=== PATIENT | female | born 1995 | race Caucasian/White ===

== ENCOUNTER → 2021-08-23 14:55 | Outpatient (BNVA) | payer OTHER, SELFPAY | PROVIDERS: Family Provider Family Medicine; PCP Family Medicine; Visit Provider Obstetrics & Gynecology | DX: Z12.4 Encounter for screening for malignant neoplasm of cervix (principal) | CPT/HCPCS: 88175 ==

== ENCOUNTER 2021-11-12 00:42 | Emergency (ER) | payer OTHER, SELFPAY ==
[2021-11-12 00:48] VITALS: BP 149/85; PULSE 128; RESP 16; TEMP 36.6; O2SAT 99; BMI 39.1
--- NOTE | 2021-11-12 01:13 | W.ED.NAVMDI ---
HPI - Nausea/Vomiting/Diarrhea General: Chief complaint: Nausea/Vomiting/Diarrhea Stated complaint: N/V shaking Time Seen by Provider: 11/12/21 00:53 History of Present Illness: HPI Narrative: Patient is a 26-year-old female comes to the ED with nausea and vomiting. Patient says that her symptoms of nausea started approximately 2 weeks ago when she was taken off her previously prescribed venlafaxine. She said the nausea was mild since stopping venlafaxine but over the past 2 days her nausea is gotten worse. Today she had approximately 4-5 episodes of emesis and feels very anxious and is diaphoretic. She denies any fevers, chills, chest pain, shortness of breath, abdominal pain or bladder symptoms. Patient says that as she arrived here to the ED tonight she did have an episode of diarrhea. Patient also states that mom and boyfriend also had some nausea and vomiting over the past couple days as well so is unsure if it might be a stomach bug. Patient is currently on control. Patient does admit to being a daily marijuana user. Denies any other illegal drug use. Associated nausea: Yes Associated symtoms: Reports anxiety, diaphoresis and nausea; Denies change in vision, chest pain, dysuria, fatigue, headache(s) or palpitations Review of Systems Const: Reports: diaphoresis; Denies: fever(s), chills or fatigue Eyes: Denies: change in vision or eye discomfort ENMT: Denies: throat pain, odynophagia, nasal discharge or nasal congestion Card: Denies: chest pain, palpitations, edema, swelling of feet/ankles, dyspnea on exertion or orthopnea Resp: Denies: dyspnea, productive cough or non-productive cough GI: Reports: nausea, vomiting and diarrhea (1 episode of diarrhea upon arrival to ED.); Denies: abdominal pain, constipation or hematochezia : Denies: flank pain, dysuria or hematuria Musc: Denies: neck pain, back pain or extremity swelling Skin/Breast: Denies: rash or new lesions Neuro: Denies: headache(s), numbness in extremities or weakness in extremities Psych: Reports: anxiety PFS ED PFSH: Medical History Anxiety and depression Diagnosed at the age of 18 and has been on and off medication. This is managed by her primary care provider. No pertinent past medical history Denies diabetes, asthma, hypertension, seizures, DVT/PE PCP: Dr. Mims Surgical History S/P tonsillectomy 2002 Family History Family/Other Breast cancer maternal aunt, diagnosed at age 32 Mother Diabetes Thyroid condition Hypertension Grandmother Diabetes paternal Heart disease paternal Grandfather Diabetes maternal Father Hypertension Denies family history of Colon cancer Ovarian cancer Hyperlipidemia Uterine cancer Stroke Physical Exam Const: COMMON NORMALS: patient oriented x3 and alert GENERAL APPEARANCE: cooperative and diaphoretic NUTRITIONAL APPEARANCE: obese HENMT: COMMON NORMALS: normocephalic HEAD & SCALP: normocephalic MOUTH: Normal oral and palatal mucosa present THROAT: posterior oropharynx normal and uvula midline Eye: COMMON NORMALS: Equal, round and reactive pupils present PUPIL: Yes Equal, round and reactive pupils present Neck/C-Spine: COMMON NORMALS: supple GENERAL: Yes normal visual inspection Resp: COMMON NORMALS: normal respiratory effort, No retractions, No use of accessory muscles and clear to auscultation bilaterally AUSCULTATION: clear to auscultation bilaterally Cardio: COMMON NORMALS: regular rate, regular rhythm, S1 normal heart sound present, S2 normal heart sound present, No gallops present (Cardio), No clicks present (Cardio), No murmurs present (Cardio) and Peripheral pulses 2+ throughout RATE: regular rate RHYTHM: regular rhythm HEART SOUNDS: S1 normal heart sound present and S2 normal heart sound present PERIPHERAL PULSES: Peripheral pulses 2+ throughout GI: COMMON NORMALS: Normal to inspection, nondistended, normoactive bowel sounds present, Soft to palpation, non-tender and no masses PALPATION: Yes Soft to palpation : COMMON NORMALS: Yes no CVA tenderness BLADDER/KIDNEY EXAM: Yes no CVA tenderness Back/Pelvis: COMMON NORMALS: no CVA tenderness Extremity: COMMON NORMALS: normal to inspection Neuro: COMMON NORMALS: patient oriented x3 and moves all extremities SENSORIUM/ORIENTATION: Yes alert Skin: GENERAL SKIN EXAM: dry skin Course Reevaluation(s): Reevaluation #1: After patient received the IV Reglan she said her nausea has resolved and she is feeling better. Patient says she is ready to go home and sleep. Time: 03:28 Vital Signs: Vital signs: Vital Signs Temperature 97.8 F 11/12/21 00:48 Pulse Rate 87 11/12/21 02:54 Respiratory Rate 18 11/12/21 02:54 Blood Pressure 156/86 11/12/21 02:54 Pulse Oximetry 98 11/12/21 02:54 MDM - Nausea/Vomiting/Diarrhea MDM Narrative: Medical decision making narrative: Patient is a 26-year-old female who comes to the ED with episode of nausea and vomiting. Patient says she has had similar episodes before. Patient does admit to being a chronic daily marijuana user. Her nausea and vomiting worsened over the past 2 days. Here in the ED she says she is also feeling some anxiety and is diaphoretic. Denies any fever, chills, chest pain, shortness of breath, abdominal pain, or bladder symptoms. Patient says she had an episode of diarrhea while here in the ED. Vitals stable. Her initial pulse was 128 upon arrival to the ED but after nausea was controlled and IV fluids given her pulse went down to 87. Rest of her vitals continue to be stable. Patient appears diaphoretic and a little anxious while sitting on the exam bed. Rest of exam is benign. CBC and CMP were unremarkable. Patient's potassium level was 3.3 she was given a dose of p.o. potassium while here in the ED. Patient was given 1 L of IV fluids, Zofran, Ativan and Reglan to help with symptoms. Her symptoms were controlled and patient said her nausea had resolved. Patient was diagnosed with nausea and vomiting and discharged home with a prescription for Reglan as needed for any nausea and vomiting. She was told to follow-up with her PCP in 7 to 10 days for reevaluation. Return to ED precautions given. Patient understood and agreed with plan. Lab Data: Attestation: I reviewed the patient's lab results. Labs: Lab Results 11/12/21 11/12/21 11/12/21 01:13 01:13 01:13 WBC 10.7 10^3/uL H 10 ^3/uL (4.0-10.0) RBC 4.63 10^6/uL 10^6 /uL (4.1-5.3) Hgb 13.7 g/dL g/dL (11.5-15.3) Hct 38.1 % % (37.0-47.0) MCV 82.3 fl fl (81-99) MCH 29.6 pg pg (28.0-34.0) MCHC 36.0 g/dL g/dL (30.0-36.0) RDW 12.4 % % (12.1-15.1) Plt Count 421 10^3/cmm H 10 ^3/cmm (130-400) MPV 9.1 fL fL (7.4-10.4) Neut % (Auto) 50.0 % % Lymph % (Auto) 39.6 % % Archule[place] % (Auto) 7.7 % % Eos % (Auto) 2.1 % % Baso % (Auto) 0.2 % % Neut # (Auto) 5.37 10^3/uL 10^3 /uL (1.8-7.7) Lymph # (Auto) 4.2 10^3/uL 10^3/ uL (0.8-4.8) [place] # (Auto) 0.8 10^3/uL 10^3/ uL (0.2-0.9) Eos # (Auto) 0.2 10^3/uL 10^3/ uL (0.0-0.8) Baso # (Auto) 0.0 10^3/uL 10^3/ uL (0.0-0.1) Nucleated RBC % (a uto) 0 % % Nucleated RBCs # 0.0 /100WBC /100W BC Sodium 136 mmol/L mmol/L (136-145) Potassium 3.3 mmol/L L mmol /L (3.5-5.1) Chloride 103 mmol/L mmol/L (98-107) Carbon Dioxide 19 mmol/L L mmol/ L (22-29) Anion Gap 17.3 (5-19) BUN 8 mg/dL mg/dL (6-20) Creatinine 0.9 mg/dL mg/dL (0.5-0.9) GFR Calculation 76.9 mL/min L mL/ min (90-130) Glucose 123 mg/dL H mg/dL (65-115) Calculated Osmolal ity 282 mOsm/kg L mOs m/kg (285-295) Calcium 9.1 mg/dL mg/dL (8.5-10.5) Total Bilirubin 0.2 mg/dL mg/dL (0.15-1.2) AST 19 U/L U/L (0-32) ALT 24 U/L U/L (0-33) Alkaline Phosphata se 61 IU/L IU/L (35-105) Total Protein 7.1 g/dL g/dL (6.6-8.7) Albumin 4.2 g/dL g/dL (3.5-5.2) Globulin 2.9 g/dL g/dL (1.3-4.6) Lipase 27 U/L U/L (13-60) HCG, Qual Negative (Negative) Urine Color Urine Appearance Urine pH Ur Specific Gravit y Urine Protein Urine Glucose (UA) Urine Ketones Urine Blood Urine Nitrate Urine Bilirubin Urine Urobilinogen Ur Leukocyte Kelli ase 11/12/21 02:08 WBC RBC Hgb Hct MCV MCH MCHC RDW Plt Count MPV Neut % (Auto) Lymph % (Auto) [place] % (Auto) Eos % (Auto) Baso % (Auto) Neut # (Auto) Lymph # (Auto) [place] # (Auto) Eos # (Auto) Baso # (Auto) Nucleated RBC % (a uto) Nucleated RBCs # Sodium Potassium Chloride Carbon Dioxide Anion Gap BUN Creatinine GFR Calculation Glucose Calculated Osmolal ity Calcium Total Bilirubin AST ALT Alkaline Phosphata se Total Protein Albumin Globulin Lipase HCG, Qual Urine Color Yellow (Yellow) Urine Appearance Clear (CLEAR) Urine pH 7 (5-7) Ur Specific Gravit y 1.010 (1.005-1.030) Urine Protein Neg (Negative) Urine Glucose (UA) Norm (Normal) Urine Ketones Negative (Negative) Urine Blood Neg (Negative) Urine Nitrate Negative (Negative) Urine Bilirubin Neg (Negative) Urine Urobilinogen Norm mg/dL mg/dL (Negative) Ur Leukocyte Kelli ase Negative (Negative) Discharge Plan Discharge Patient Disposition: Home Clinical Impression: Nausea & vomiting Qualifiers: Vomiting type: unspecified Qualified Code(s): R11.2 - Nausea with vomiting, unspecified Condition: Stable Prescriptions: New metoclopramide HCl 10 mg tablet 10 mg PO Q6H PRN (Reason: nausea and vomiting) Qty: 12 RF: 0 No Action venlafaxine 25 mg tablet 25 mg PO BID RF: 0 norethindrone-e.estradiol-iron [11/09 (28)] 1 mg-20 mcg (21)/75 mg (7) tablet 1 tab PO DAILY Qty: 84 RF: 3 Discharge Orders: Discharge ED (Routine); Ordered 11/12/21 Ordered By: Nikunj Simms Referrals: Duane Corrigan MD [Primary Care Provider] - Discharge Diet: Advance as tolerated Discharge Activity: Increase activity as tolerated Patient Instructions: Acute Nausea and Vomiting (ED) Activity Restrictions/Additional Instructions: Follow-up with medical provider as directed in 7 to 10 days for reevaluation. Make sure you drink plenty of fluids and stay hydrated. Take medications as prescribed. Return to the ER or your medical provider if condition worsens. Please read and understand discharge instructions. Thank you for choosing [facility] for your healthcare needs today. Please realize this is an emergency room and that we are providing you with a medical screening exam and this may not be complete and all inclusive of all the testing and or work up that you may need to determine your ailment or severity of your illness. It is very important that you follow up as instructed or that you return to the Emergency Department should you have concerns or if your condition changes or worsens in any way. Coding Level of Care Code ED Belt Builder Helper for Faheem Fwd Exam Comprehensive
[2021-11-12 01:27] LABS: Basophils % 0.2 %; Eosinophils # 0.2 10^3/uL (0.0-0.8); Eosinophils % 2.1 %; Hematocrit 38.1 % (37.0-47.0); Hemoglobin 13.7 g/dL (11.5-15.3); Lymphocytes # 4.2 10^3/uL (0.8-4.8); Lymphocytes % 39.6 %; Mean Corpuscular Hemoglobin 29.6 pg (28.0-34.0); Mean Corpuscular Volume 82.3 fl (81-99); Mean Platelet Volume 9.1 fL (7.4-10.4); Monocytes # 0.8 10^3/uL (0.2-0.9); Monocytes % 7.7 %; Neutrophils # 5.37 10^3/uL (1.8-7.7); Nucleated Red Blood Cells % 0 %; Platelet Count 421 10^3/cmm (130-400); Red Blood Count 4.63 10^6/uL (4.1-5.3); Red Cell Distribution Width 12.4 % (12.1-15.1); White Blood Count 10.7 10^3/uL (4.0-10.0)
[2021-11-12] MEDS: sodium chloride 0.9% 1,000 ML 999 ML IV (01:48)
[2021-11-12] MEDS: ondansetron 2 mg/ML SDV 2 mL 4 MG IVP (01:48)
[2021-11-12 01:51] LABS: Alanine Aminotransferase 24 U/L (0-33); Albumin Level 4.2 g/dL (3.5-5.2); Alkaline Phosphatase 61 IU/L (35-105); Anion Gap 17.3 (5-19); Aspartate Amino Transferase 19 U/L (0-32); Blood Urea Nitrogen 8 mg/dL (6-20); Calcium 9.1 mg/dL (8.5-10.5); Carbon Dioxide 19 mmol/L (22-29); Chloride 103 mmol/L (98-107); Globulin 2.9 g/dL (1.3-4.6); Glomerular Filtration Rate 76.9 mL/min (90-130); Glucose 123 mg/dL (65-115); Lipase 27 U/L (13-60); Osmolality Calculated 282 mOsm/kg (285-295); Potassium 3.3 mmol/L (3.5-5.1); Sodium 136 mmol/L (136-145); Total Bilirubin 0.2 mg/dL (0.15-1.2); Total Protein 7.1 g/dL (6.6-8.7)
[2021-11-12 01:57] LABS: HCG, Serum Qual Negative (Negative)
[2021-11-12 02:00] LABS: Slide Review Slide Review Perform
[2021-11-12] MEDS: LORazepam 2 mg/mL INJ 1 mL 1 MG IVP (02:21)
[2021-11-12 02:25] LABS: Add Urine Microscopic? NO; Charge for UA Resulting for Rev
[2021-11-12 02:27] LABS: Bilirubin Urine Neg (Negative); Blood Urine Neg (Negative); Glucose Urine UA Norm (Normal); Ketones Urine Negative (Negative); Leukocyte Esterase Urine Negative (Negative); Nitrate Urine Negative (Negative); Protein Urine Neg (Negative); Urine Appearance Clear (CLEAR); Urine Color Yellow (Yellow); Urobilinogen Urine Norm (Negative); pH Urine 7 (5-7)
[2021-11-12 02:54] VITALS: BP 156/86; PULSE 87; RESP 18; O2SAT 98
[2021-11-12] MEDS: metoclopramide 5 mg/mL SDV 2 mL 10 MG IVP (03:15)
[2021-11-12] MEDS: potassium chloride ER 20 mEq Tablet PO (03:41)
== END 2021-11-12 03:42 | disposition home or self-care (01) ==
PROVIDERS: Emergency Provider Physician Assistant; PCP Family Medicine
DX: R11.2 Nausea with vomiting, unspecified (principal)
CPT/HCPCS: 80053; 81003; 83690; 84703; 85025; 96361; 96374; 96375; 99284; J2060; J2405; J2765; J7030

== ENCOUNTER → 2022-01-10 11:12 | Outpatient (BNVA) | payer OTHER, SELFPAY | PROVIDERS: PCP Family Medicine; Visit Provider Obstetrics & Gynecology | DX: N93.9 Abnormal uterine and vaginal bleeding, unspecified (principal) | CPT/HCPCS: 84146; 84443; 84702; 85025 ==

== ENCOUNTER → 2022-09-21 06:58 | Outpatient (BNVA) | payer OTHER, SELFPAY | PROVIDERS: PCP Family Medicine; Visit Provider Family Medicine | DX: Z34.90 Encounter for supervision of normal pregnancy, unspecified, unspecified trimester (principal); Z34.00 Encounter for supervision of normal first pregnancy, unspecified trimester; I10 Essential (primary) hypertension | CPT/HCPCS: 80307; 81000; 81025; 84144; 84156; 84443; 84702; 85025; 86592; 86762; 86803; 86850; 86900; 87086; 87340; 87491; 87591; 87624; 87661; 87806 ==

== ENCOUNTER 2022-10-05 15:52 | Outpatient (CLI) | payer OTHER, MEDICAID, SELFPAY ==
--- NOTE | 2022-10-05 16:00 | USR_ITS ---
PROCEDURE INFORMATION: Exam: US First Trimester, Transabdominal and US , Transvaginal Exam date and time: 10/05/2022 4:05 PM Age: 27 years old Clinical indication: Screening exam; Routine US, uterus; Additional info: Dating US LABS AND CLINICAL REPORTS: Last menstrual period start date: 07/29/2022 Gestational age (Established): 9 w 5 d Estimated due date (Established): 05/05/2023 TECHNIQUE: Imaging protocol: Real-time transabdominal obstetrical ultrasound of the maternal pelvis and a first trimester , less than 14 weeks 0 days, with image documentation. Transvaginal imaging was used for better evaluation of the fetus, adnexa, and/or cervix. COMPARISON: CT abdomen pelvis w con* [id number] 02/04/2018 4:03 AM FINDINGS: Gestation: Intrauterine gestation is visualized. pole is visualized. Yolk sac is visualized. Yolk sac measures 4.8 mm. Embryonic/ heart rate: 167 bpm Extra-embryonic membranes/Placenta: Unremarkable. No subchorionic bleed. Amniotic fluid: Amniotic fluid and extra-amniotic fluid is normal for gestational age. BIOMETRY: Gestational age (AUA): 9 w 5 d [place]-Rump length (CRL): 28.7 mm. EGA (CRL) is 9 w 5 d MATERNAL: Uterus: Unremarkable. Cervix: Unremarkable. Right ovary/adnexa: Unremarkable ovary. Left ovary/adnexa: Unremarkable ovary. Intraperitoneal space: No intraperitoneal free fluid. US/US OB <= 14 weeks fetus [id number] IMPRESSION: Single live intrauterine fetus with ultrasonographic age of 9 weeks 5 days.
== END 2022-10-05 15:53 | disposition home or self-care (01) ==
LOC: RAD 15:52
PROVIDERS: PCP Family Medicine; Visit Provider Family Medicine
DX: Z34.00 Encounter for supervision of normal first pregnancy, unspecified trimester (principal)
CPT/HCPCS: 76801; 84144; 84156; 84702

== ENCOUNTER 2022-12-27 07:56 | Outpatient (CLI) | payer OTHER, BC, MEDICAID, SELFPAY ==
--- NOTE | 2022-12-27 08:00 | US_ITS ---
WS: [id number] OBSTETRICAL ULTRASOUND COMPLETE HISTORY: Anatomy scan. COMPARISON: 10/05/2022 Single intrauterine gestation in breech presentation. Cervix is Closed and normal length. Cervical length is 5.1 cm. Normal amount of amniotic fluid surrounds the fetus. Placenta: Anterior, no previa or abruption. Placenta grade 1 Heart: 141 BPM. 4 chambers cannot be determined. Outflow tracts are limited. Anatomy: Intracranial structures and spine are normal. Spine is posterior during the examinatio n. kidneys, stomach and urinary bladder are unremarkable. Abdominal wall, three-vessel cord and cord insertion site are normal. 4 extremities are present. profile: Unremarkable. Gender: Male. measurements: BPD = 5.1 cm = 21w3d; HC = 19.4 cm = 21w4d; AC = 16.5 cm = 21w4d; FL = 3.7 cm = 21w5d; EFW: 440 g. Not available. Biometry is internally concordant. AGA by ultrasound: 21w4d BRITTNEE by ultrasound: 05/05/2023 US/US OB >= 14 weeks fetus [id number] IMPRESSION: 1. Single intrauterine gestation of 21w4d with an BRITTNEE of 05/05/2023. 2. Anatomic screening survey is limited by maternal body habitus. This is a ve ry limited evaluation of the heart. Recommend follow-up imaging in 2-3 we eks. The remaining anatomy although limited is unremarkable. 3. Normal amniotic fluid.
== END 2022-12-27 07:57 | disposition home or self-care (01) ==
PROVIDERS: PCP Family Medicine; Visit Provider Family Medicine
DX: Z34.00 Encounter for supervision of normal first pregnancy, unspecified trimester (principal); Z3A.21 21 weeks gestation of pregnancy
CPT/HCPCS: 76805

== ENCOUNTER → 2023-01-14 13:28 | Outpatient (BNVA) | payer BC, MEDICAID, SELFPAY | PROVIDERS: PCP Family Medicine; Visit Provider Obstetrics & Gynecology | DX: R87.619 Unspecified abnormal cytological findings in specimens from cervix uteri (principal); Z34.00 Encounter for supervision of normal first pregnancy, unspecified trimester | CPT/HCPCS: 81025 ==

== ENCOUNTER 2023-01-23 08:01 | Outpatient (CLI) | payer BC, MEDICAID, SELFPAY ==
--- NOTE | 2023-01-23 08:15 | US_ITS ---
WS: [id number] ULTRASOUND OB FOCUSED HISTORY: Follow-up outflow tracts. COMPARISON: 12/27/2022 Single intrauterine gestation in cephalic position. Cervix is closed. Normal amount of amniotic fluid . Anterior placenta, grade 1. heart rate at 153 BPM. Four-chamber heart. Normal situs. Normal axis. Outflow tracts better visualized today. Normal LEFT ve ntricular outflow tract. RIGHT ventricular outflow tract is more difficult to visualize but no abnorm ality is identified. US/US OB >= 14 weeks fetus [id number] IMPRESSION: Reevaluation of the cardiac outflow tracts demonstrates no abnormality.
== END 2023-01-23 08:02 | disposition home or self-care (01) ==
PROVIDERS: PCP Family Medicine; Visit Provider Family Medicine
DX: Z36.89 Encounter for other specified antenatal screening (principal); Z3A.14 14 weeks gestation of pregnancy
CPT/HCPCS: 76805

== ENCOUNTER → 2023-02-01 08:21 | Outpatient (BNVA) | payer BC, MEDICAID, SELFPAY | PROVIDERS: PCP Family Medicine; Visit Provider Family Medicine | DX: Z34.00 Encounter for supervision of normal first pregnancy, unspecified trimester (principal); Z3A.00 Weeks of gestation of pregnancy not specified | CPT/HCPCS: 82950 ==

== ENCOUNTER → 2023-02-14 10:03 | Outpatient (BNVA) | payer OTHER, BC, SELFPAY | PROVIDERS: PCP Family Medicine; Visit Provider Family Medicine | DX: Z34.00 Encounter for supervision of normal first pregnancy, unspecified trimester (principal); R73.09 Other abnormal glucose | CPT/HCPCS: 82951; 82952 ==

== ENCOUNTER → 2023-03-20 08:42 | Outpatient (BNVA) | payer OTHER, BC, SELFPAY | PROVIDERS: PCP Family Medicine; Visit Provider Family Medicine | DX: Z34.00 Encounter for supervision of normal first pregnancy, unspecified trimester (principal) | CPT/HCPCS: 85025 ==

== ENCOUNTER → 2023-04-08 08:53 | Outpatient (BNVA) | payer OTHER, BC, SELFPAY | PROVIDERS: PCP Family Medicine; Visit Provider Family Medicine | DX: I10 Essential (primary) hypertension (principal); Z34.00 Encounter for supervision of normal first pregnancy, unspecified trimester; Z34.90 Encounter for supervision of normal pregnancy, unspecified, unspecified trimester; R30.0 Dysuria | CPT/HCPCS: 82570; 84156; 87081; 87086 ==

== ENCOUNTER → 2023-04-24 12:58 | Outpatient (BNVA) | payer BC, MEDICAID, SELFPAY | PROVIDERS: PCP Family Medicine; Visit Provider Family Medicine | DX: I10 Essential (primary) hypertension (principal); R03.0 Elevated blood-pressure reading, without diagnosis of hypertension; Z34.00 Encounter for supervision of normal first pregnancy, unspecified trimester; Z51.81 Encounter for therapeutic drug level monitoring; Z3A.00 Weeks of gestation of pregnancy not specified | CPT/HCPCS: 80053; 82570; 84156; 84550; 85025 ==

== ENCOUNTER 2023-04-26 12:40 | Outpatient (CLI) | payer BC, MEDICAID, SELFPAY ==
[2023-04-26 12:40] VITALS: BMI 42.1
[2023-04-26 12:52] VITALS: BP 140/90; PULSE 107
[2023-04-26 13:07] VITALS: BP 133/76; PULSE 90
[2023-04-26 13:22] VITALS: BP 138/77; PULSE 76
[2023-04-26 13:37] VITALS: BP 141/85; PULSE 82
[2023-04-26 14:15] VITALS: BP 141/85; PULSE 82; RESP 15; TEMP 36.4
== END 2023-04-26 14:15 | disposition home or self-care (01) ==
LOC: OPOB 12:45 → OBGYN 12:46
PROVIDERS: PCP Family Medicine; Visit Provider Family Medicine
DX: O16.9 Unspecified maternal hypertension, unspecified trimester (principal); Z3A.00 Weeks of gestation of pregnancy not specified
CPT/HCPCS: 59025; 99211

== ENCOUNTER 2023-04-27 13:48 | Outpatient (CLI) | payer BC, MEDICAID, SELFPAY ==
[2023-04-27 15:09] LABS: Urine Total Protein 7.5 mg/dL (0-150)
[2023-04-27 15:29] LABS: Total Volume, Urine 1900 mL; Urine Total Protein 24 Hour 142.5 mg/24hr (0-150)
== END 2023-04-27 13:49 | disposition home or self-care (01) ==
PROVIDERS: PCP Family Medicine; Visit Provider Family Medicine
DX: O13.9 Gestational [pregnancy-induced] hypertension without significant proteinuria, unspecified trimester (principal); Z3A.00 Weeks of gestation of pregnancy not specified
CPT/HCPCS: 84156

== ENCOUNTER 2023-04-29 18:12 | Inpatient (IN) | payer BC, MEDICAID, SELFPAY ==
[2023-04-29 18:37] VITALS: BP 134/85; PULSE 102
[2023-04-29 19:46] VITALS: BMI 42.4
[2023-04-29 20:29] LABS: Amphetamines Screen Urine Negative (Negative); Barbiturates Screen Urine Negative (Negative); Benzodiazepines Screen Urine Negative (Negative); Cocaine Screen Urine Negative (Negative); Opiate Screen Urine Negative (Negative); PCP Screen Urine Negative (Negative); THC Screen Urine Positive (Negative)
[2023-04-29 20:42] VITALS: BP 142/88; PULSE 80
--- NOTE | 2023-04-29 21:16 | PM.HP ---
Providers/Chief Complaint Admitting Physician: Nikunj Mims MD Primary Care Provider: Nikunj Mims MD Chief Complaint: induction History of Present Illness Mi Gaviria is a 28 year old @ 39.1 weeks by LMP c/w 9 wk US. Preg c/b obesity, borderline cHTN, Depression/anxiety on Sertraline 50, nicotine/THC use in early TM, h/o chlamydia, LSIL, mild anemia. The patient presents for induction of labor secondary to chronic hypertension. Her blood pressures have been in the 130s to 140s over 80s and 90s. She has not needed medications for this yet. Overall she is feeling well. She denies any chest pains, shortness of breath, nausea, vomiting, headaches, flashes of light, diarrhea, constipation, dysuria, leakage of fluid, vaginal bleeding. She has had a few sporadic contractions. Medications/Allergies Home Medications Medication Instructions Recorded Confirmed Last Taken Type doxylamine succinate 25 mg tablet 25 mg PO Q6H PRN Nausea 09/21/22 04/29/23 Unknown History prenat.vits,jessica,[id number] 1 tab PO DAILY 09/21/22 04/29/23 Unknown History pyridoxine (vitamin B6) 100 mg 100 mg PO QID 09/21/22 04/29/23 Unknown History tablet (Vitamin B-6) sertraline 50 mg tablet See Rx Instructions .Route 03/28/23 04/29/23 Unknown Rx .COMPLEX #30 tabs Allergies Allergy/AdvReac Type Severity Reaction Status Date / Time No Known Allergies Allergy Verified 01/14/23 12:57 PFSH Acute PFSH: Medical History Anxiety and depression Diagnosed at the age of 18 and has been on and off medication. This is managed by her primary care provider. No pertinent past medical history Denies diabetes, asthma, hypertension, seizures, DVT/PE PCP: Dr. Mims Psychiatric care Surgical History S/P tonsillectomy 2002 Family History Family/Other Breast cancer maternal aunt, diagnosed at age 32 Mother Diabetes Thyroid condition Hypertension Grandmother Diabetes paternal Heart disease paternal Grandfather Diabetes maternal Father Hypertension Denies family history of Colon cancer Ovarian cancer Hyperlipidemia Uterine cancer Stroke Social History Substance/Drug Use: former Date of last use: 08/2022 - [facility] Female Reproductive History: : 1 Vitals/I&O/Wt Last Vital Signs Pulse 80 04/29/23 20:42 BP 142/88 04/29/23 20:42 O2 Del Method Room Air 04/29/23 19:38 Weight last 48 hrs Weight 271 lb Physical Exam Narrative: General: Alert and oriented x3 Eyes: Pupils equal round and reactive to light and accommodation Mouth: Mucous membranes moist, pharynx non-erythematous Cardiac: Regular rate and rhythm without murmurs Lungs: Clear to auscultation bilaterally without wheezes, crackles or rhonchi Abdomen: Soft, non-tender, fundus consistent with gestational age Extremities: Trace edema in the bilateral lower extremities A&P Assessment and plan (1) Supervision of normal intrauterine in primigravida: The patient presents for induction of labor. We will start her on Cytotec. We will give up to 3 doses if needed. The patient may receive a laboring epidural when she gets to 3 cm dilated. We will proceed with the antihypertensive protocol if needed. The patient is GBS negative. We discussed the possible risks and benefits of induction at this time. The patient and her significant other are in agreement with current plan of care. All questions were answered. (2) Hypertension: Attestations Medical Necessity Statement*: The patient will be here for greater than 2 midnights due to routine intrapartum and management of labor and delivery. Coding Level of Care Code Acute Code for Chg Fwd Diagnoses Supervision of normal intrauterine in primigravida Z34.00 Hypertension I10
[2023-04-29] MEDS: miSOPROStol 100 mcg tablet 25 MCG VAGINAL (22:30)
[2023-04-29 22:42] VITALS: TEMP 36.5
[2023-04-29 22:59] LABS: Basophils % 0.2 %; Eosinophils # 0.1 10^3/uL (0.0-0.8); Eosinophils % 0.7 %; Hematocrit 32.8 % (37.0-47.0); Hemoglobin 10.5 g/dL (11.5-15.3); Lymphocytes # 2.7 10^3/uL (0.8-4.8); Lymphocytes % 24.9 %; Mean Corpuscular Hemoglobin 26.6 pg (28.0-34.0); Mean Corpuscular Volume 83.2 fl (81-99); Mean Platelet Volume 11.1 fL (7.4-10.4); Monocytes # 0.7 10^3/uL (0.2-0.9); Monocytes % 6.8 %; Neutrophils # 7.17 10^3/uL (1.8-7.7); Neutrophils % 66.6 %; Nucleated Red Blood Cells % 0 %; Platelet Count 369 10^3/cmm (130-400); Red Blood Count 3.94 10^6/uL (4.1-5.3); Red Cell Distribution Width 14.3 % (12.1-15.1); White Blood Count 10.8 10^3/uL (4.0-10.0)
[2023-04-29 23:03] VITALS: BP 133/73; PULSE 79
[2023-04-30] VITALS (78 sets, daily range): BP systolic 102–188; BP diastolic 52–97; PULSE 54–81; RESP 15–17; TEMP 35.7–36.6; O2SAT 98–100
[2023-04-30] MEDS: hyDROXYzine 25 mg Capsule 50 MG PO ×3 (02:11→23:55)
[2023-04-30] MEDS: ondansetron 2 mg/ML SDV 2 mL 4 MG IVP ×3 (02:12→21:22)
[2023-04-30] MEDS: miSOPROStol 100 mcg tablet 25 MCG VAGINAL ×2 (02:51→07:32)
--- NOTE | 2023-04-30 08:14 | PM.PN ---
Subjective Subjective: Mi Gaviria is a 28 year old @ 39.2 weeks by LMP c/w 9 wk US. Preg c/b obesity, cHTN, Depression/anxiety on Sertraline 50, nicotine/THC use in early 1st TM, h/o chlamydia, LSIL, mild anemia. The patient is doing well at this time. She has had some mild nausea, however no further chest pains, headache or seeing flashes of light. She had 2 doses of Cytotec placed overnight. She had her third dose placed at 7:30 AM. At that time she was still closed, thick and high. Vitals/I&O/Wt Last Vital Signs Temp 96.6 F L 04/30/23 06:48 Pulse 68 04/30/23 08:10 BP 131/76 04/30/23 08:10 O2 Del Method Room Air 04/29/23 19:38 Weight last 48 hrs Weight 271 lb Physical Exam Narrative: General: Alert and oriented x3 Cardiac: Regular rate and rhythm without murmurs Lungs: Clear to auscultation bilaterally without wheezes, crackles or rhonchi Abdomen: Soft, non-tender, fundus consistent with gestational age Extremities: Trace edema in the bilateral lower extremities Data 04/29/23 18:40 A&P Assessment and plan (1) Supervision of normal intrauterine in primigravida: The patient is doing well overall, however has not responded to the first 2 doses of Cytotec. She is phuong every 5 minutes but they are not firm at this point. We will see how she does after her third dose of Cytotec and follow. Blood pressures have been stable so far. We will continue with intrapartum management of labor and delivery. All questions were answered. The patient is in agreement with the current plan of care. (2) Hypertension: (3) Anemia affecting first : Attestations Medical Necessity Statement*: The patient will be here for greater than 2 midnights due to routine intrapartum and management of labor and delivery. Coding Level of Care Code Acute Code for Chg Fwd Diagnoses Supervision of normal intrauterine in primigravida Z34.00 Hypertension I10 Anemia affecting first O99.019
[2023-04-30] MEDS: dextrose 5%-lactated ringers 1,000 ML 125 ML IV ×2 (13:30→17:42)
[2023-04-30] MEDS: fentaNYL 50 mcg/mL INJ 2mL IVP ×2 (15:35→17:48)
[2023-04-30] MEDS: lactated ringers 1,000 ML 999 ML IV ×3 (16:18→21:29)
[2023-04-30] MEDS: acetaminophen 325 mg Tablet 650 MG PO (17:47)
--- NOTE | 2023-04-30 20:20 | P.ANESASSM_ITS ---
Pre-Anesthetic Assessment Height/Weight: Height 1.7 m Weight 122.924 kg Temp Pulse Resp BP O2 Del Method 97.9 F 67 17 138/75 Room Air 04/30/23 13:03 04/30/23 20:09 04/30/23 17:48 04/30/23 20:09 04/29/23 19:38 Preop Diagnosis: labor pain epidural Was Beta Rodrigo taken within 24 hours: N/A Was Clonidine taken within 24 hours: N/A Social No alcohol marijuana daily not in last 24 hours Exam alert, oriented x 3, clear to auscultation bilaterally and regular rate & rhythm Airway Submandibular: within normal limits Cervical ROM: within normal limits Mallampati: Class II Dentition: full Comments: Comments: poor Pulmonary None reported CV/HEM murmur as child but has gone away None reported Hepatic None reported GI Gastroesophageal Reflux Disease Metabolic Morbid Obesity [facility] None reported Neuropsych Anxiety, Depression and Headache Anesthetic Plan ASA status: 3 Anesthesia: Regional (specify below) Risk of > 500 ml blood loss (7ml/kg in children): No Medications/Allergies Home Medications Medication Instructions Recorded Confirmed Last Taken Type doxylamine succinate 25 mg tablet 25 mg PO Q6H PRN Nausea 09/21/22 04/29/23 Unknown History prenat.vits,jessica,[id number] 1 tab PO DAILY 09/21/22 04/29/23 Unknown History pyridoxine (vitamin B6) 100 mg 100 mg PO QID 09/21/22 04/29/23 Unknown History tablet (Vitamin B-6) sertraline 50 mg tablet See Rx Instructions .Route 03/28/23 04/29/23 Unknown Rx .COMPLEX #30 tabs Allergies Allergy/AdvReac Type Severity Reaction Status Date / Time No Known Allergies Allergy Verified 01/14/23 12:57 Current Medications Generic Name Dose Route Start Last Admin Trade Name Freq PRN Reason Stop Dose Admin Acetaminophen 650 mg 04/29/23 20:05 04/30/23 17:47 Acetaminophen 325 Mg Tablet PO 650 mg Q6H PRN Administration Mild pain or temp > 100.4 Fentanyl 25 - 100 mcg 04/29/23 21:58 04/30/23 17:48 Fentanyl 50 Mcg/Ml Inj 2ml IVP 50 mcg Q1H PRN Administration SEVERE PAIN Hydroxyzine Pamoate 50 mg 04/29/23 20:05 04/30/23 17:48 Hydroxyzine 25 Mg Capsule PO 50 mg QID PRN Administration sleep, agitation or itching Lactated Ringer's 1,000 mls @ 999 mls/hr 04/29/23 20:05 04/30/23 17:20 Lactated Ringers IV Infused .Q1H1M PRN Infusion Per L&D Rescitation Protocol Dextrose/Lactated Ringer's 1,000 mls @ 125 mls/hr 04/29/23 21:59 04/30/23 17:42 Dextrose 5%-Lactated Ringers IV 125 mls/hr .Q8H PRN Administration IOL Oxytocin 30 unit in 500 mls @ 1 mls/hr 04/30/23 12:00 04/30/23 13:46 Pitocin IV Not Given .Q24H MATILDA Protocol 1 MILLIUNIT/MIN Oxytocin 30 unit/ Sodium 503 mls @ 1 mls/hr 04/30/23 12:15 04/30/23 18:30 Chloride IV 2 mls/hr .Q24H MATILDA 2 mls/hr Titration Protocol Lactated Ringer's 1,000 mls @ 999 mls/hr 04/30/23 19:06 04/30/23 19:18 Lactated Ringers IV 999 mls/hr .Q1H1M PRN Administration See label comments Ondansetron HCl 4 mg 04/29/23 20:05 04/30/23 06:41 Ondansetron 2 Mg/Ml Sdv 2 Ml IVP 4 mg Q4H PRN Administration NAUSEA AND VOMITING PFSH Anesthesia Medical History Anxiety and depression Diagnosed at the age of 18 and has been on and off medication. This is managed by her primary care provider. No pertinent past medical history Denies diabetes, asthma, hypertension, seizures, DVT/PE PCP: Dr. Mims Psychiatric care Surgical History S/P tonsillectomy 2002 Family History Family/Other Breast cancer maternal aunt, diagnosed at age 32 Mother Diabetes Thyroid condition Hypertension Grandmother Diabetes paternal Heart disease paternal Grandfather Diabetes maternal Father Hypertension Denies family history of Colon cancer Ovarian cancer Hyperlipidemia Uterine cancer Stroke Social History Substance/Drug Use: former Date of last use: 08/2022 - [facility] Female Reproductive History : 1 Data Anesthesia 04/29/23 18:40 Short CBC 04/29/23 Range/Units 18:40 WBC 10.8 H (4.0-10.0) 10^3/uL Hgb 10.5 L (11.5-15.3) g/dL Hct 32.8 L (37.0-47.0) % MCV 83.2 (81-99) fl Plt Count 369 (130-400) 10^3/cmm Neut % (Auto) 66.6 % Neut # (Auto) 7.17 (1.8-7.7) 10^3/uL Cardiac Studies: No Data to Display
--- NOTE | 2023-04-30 20:58 | P.ANES_ITS ---
Anesthesia Procedures Procedure/Date: 04/30/23 epidural Procedure Narrative: epidural complete, bolus given, epidural pump initiated with SUPPLY CHAIN PLANNER education given, vitals taken during procedure and satisfactory throughout, patient admits to decrease pain, report of procedure to OB RN Epidural: Time Out Performed: Yes Consents Signed: Procedure Consent Consent: requested by attending/covering physician, from patient, risks and benefits reviewed and patient agrees to proceed Lumbar Level: L3-L4 Epidural position: sitting Epidural procedure: sterile prep of area, 1% lidocaine to numb the area (3 mL), 18 g needle, negative for paresthesia passed, neg for paresthesia, test dose given, 1.5% xylocaine 1:200k epi (5 mL), 0.2% Ropivacaine bolus ml (5 mL), placed PCEA, no systemic response, sterile dressing applied, L.U.D. no apparent complications and 0.2% Ropiavacaine @ mls/hr (13 mL/hr)
[2023-05-01] VITALS (91 sets, daily range): BP systolic 99–173; BP diastolic 50–109; PULSE 54–129; RESP 16–18; TEMP 36.6–37.3
[2023-05-01] MEDS: ondansetron 2 mg/ML SDV 2 mL 4 MG IVP ×3 (04:19→16:45)
[2023-05-01] MEDS: dextrose 5%-lactated ringers 1,000 ML 125 ML IV ×4 (05:08→20:44)
[2023-05-01] MEDS: hyDROXYzine 25 mg Capsule 50 MG PO ×2 (06:32→13:05)
[2023-05-01] MEDS: metoclopramide 5 mg/mL SDV 2 mL 10 MG IV (13:05)
--- NOTE | 2023-05-01 21:25 | ANES.PROC ---
Anesthesia Procedures Procedure/Date: 05/01/23 Procedure Narrative: Called to evaluate epidural, pt states she is feeling 10/10 pain with contractions and epidural has been working well until her water was broken. She states the pain is mostly in her back but she feels some increased pain in her abdomen with contractions. 100mcg of fentanyl via epidural and 3ml 0.25% bupivicaine via epidural. Pt's pain reassessed 15 minutes later and she states she is more comfortable and feeling less pain with contractions. Pt re-educated on epidural and epidural PROSECUTING ATTORNEY.
[2023-05-01] MEDS: metoclopramide 5 mg/mL SDV 2 mL 10 MG IVP (22:33)
[2023-05-01] MEDS: citric acid-sodium citrate 30 mL UDC PO (22:33)
[2023-05-01] MEDS: lactated ringers 1,000 ML 999 ML IV (22:33)
[2023-05-01] MEDS: famotidine 20 mg/2 mL INJ IVP (22:33)
[2023-05-01] MEDS: ceFAZolin 2,000 MG in sodium chloride 0.9% (plus) 50 ML 100 MG IV (22:38)
--- NOTE | 2023-05-01 22:40 | PM.MISC ---
Miscellaneous Note Note: The patient has been laboring throughout the day and her water is broken earlier this afternoon. She was 4 cm at that time. She progressed to 7 cm at approximately 6:15 PM. Since then she has had regular contractions, however is still only 7.5 cm despite multiple position changes. heart tones are currently in the mid 150s with moderate variability good accelerations with occasional early decelerations. Since we are not making significant change, there is concern for cephalopelvic disproportion and we will proceed with a primary low-transverse section due to arrest of dilation. The patient is in agreement with the current plan of care. All questions were answered.
[2023-05-02] VITALS (44 sets, daily range): BP systolic 113–173; BP diastolic 66–110; PULSE 64–100; RESP 15–16; TEMP 35.8–37
[2023-05-02] MEDS: clindamycin 900 MG/50 ML PREMIX 100 MG IV ×3 (00:15→16:16)
--- NOTE | 2023-05-02 00:59 | PM.OP ---
Operative Report Date of procedure: May 02, 2023 Pre-op diagnosis: 1. Intrauterine at 39.3 weeks gestation 2. Obesity 3. Chronic hypertension 4. Depression and anxiety on sertraline 5. THC positive 6. Mild anemia Post-op diagnosis: 1. Intrauterine status post primary low-transverse section at 39.3 weeks gestation 2. Obesity 3. Chronic hypertension 4. Depression and anxiety on sertraline 5. THC positive 6. Mild anemia 7. Delivery of healthy male weighing 7 pounds 15 ounces with Apgars of 8 and 9 Post-op findings: 1. Healthy male weighing 7 pounds 15 ounces with Apgars of 8 and 9 2. Intact placenta with central umbilical cord insertion site Procedure done: Primary low-transverse section Specimens removed/disposition: Placenta removed Surgeon: Nikunj Mims MD Estimated blood loss (mL): 650 Complications: None Brief History: Mi Gaviria is a 28 year old G1 now P1 status post primary low transverse section @ 39.3 weeks by LMP c/w 9 wk US. Preg c/b obesity, borderline cHTN, Depression/anxiety on Sertraline 50, nicotine/THC use in early , h/o chlamydia, LSIL, mild anemia. The patient presented for induction of labor due to chronic hypertension at 39.1 weeks gestation on the evening of 04/29/2023. The patient was given 3 doses of Cytotec and changed to 1 cm dilation. She was then started on IV Pitocin and began to make change, however this was slow in nature. Unfortunately the infant's head was balottable so AROM could not be performed initially. By the morning of 05/01/2023, the patient began to make cervical change and by early afternoon at approximately 2:30 PM on 05/01/2023, AROM was performed with clear fluid noted. The patient began to make change and was 7 cm dilated by 6:15 PM. She did not make any significant change however by 10 PM despite adequate contractions. For this reason it was felt best to proceed with a primary low-transverse section due to arrest of dilation concerning for cephalopelvic disproportion. Procedure: After informed consent was obtained, the patient was taken to the operating room and the patient was prepped and draped in a normal sterile fashion in the dorsal supine position.? Her epidural was dosed for anesthesia, however did not provide adequate anesthesia. For this reason general sedation was given. At 2326 on 05/01/2023 a Pfannenstiel skin incision was made and carried through to the underlying layer of fascia using a scalpel.? The fascial incision was then extended laterally using curved Mayos.? The fascia was then grasped with Lance clamps and the underlying rectus muscles were dissected off taking care to avoid injury to the underlying tissues.? The peritoneum was entered bluntly with one digit.? It was then bluntly.? The bladder blade was placed and the vesicouterine peritoneum was well below the lower uterine segment of the uterus.? The uterine incision was made in the lower uterine segment in a transverse fashion with the scalpel at 8.? The amniotic membrane was entered bluntly and a moderate amount of meconium stained fluid was noted.? Uterine pressure was placed and the infant's head delivered without complication at 2328 on 05/01/2023.? There was no nuchal cord.? The mouth and nose were suctioned.? The rest of the infant delivered without difficulty.? The infant took a breath shortly after delivery.? The cord was clamped and cut and the was handed to the awaiting pediatric nurses.? The placenta was then manually expressed.? The uterus was exteriorized from the abdomen.? A wet lap was used to clear the uterus of clots and debris.? The bladder blade was reinserted and the uterine incision was closed using 0 chromic in a running locking fashion.? The uterus was noted to be firm with massage.? A second layer of the same suture was used in the same manner.? Excellent hemostasis was obtained. Next the posterior cul-de-sac was inspected and was cleared of any blood. The gutters were cleared of any further clots and debris and the uterine incision was again inspected and hemostasis was noted.? The subfascial tissue was inspected for hemostasis and the peritoneum was re-approximated using 2-0 plain in a running fashion.? The fascia was then re-approximated using 0 Vicryl in a running fashion.? The subcutaneous tissue was inspected for hemostasis.? Tracey's fascia was then re-approximated using 3-0 plain in a running fashion.? Good hemostasis was noted.? The subcutaneous tissue was then re-approximated using a subcuticular stitch.? The patient tolerated the procedure well and was recovered in stable condition.? Estimated blood loss was 650 mL. Urine in the Kwan catheter was clear. The patient was taken to recovery in good condition.
--- NOTE | 2023-05-02 03:00 | ANE.PACU2 ---
Inpatient post-anesthesia follow up: Airway intact: Yes Vital signs: Temperature 96.3 F Pulse Rate 89 Respiratory Rate 16 Blood Pressure 145/72 Pulse Oximetry 99 Oxygen Delivery Me thod Room Air Oxygen Flow Rate Fraction of Inspir ed Oxygen Hydration adequate: Yes Nausea and vomiting: Yes Pain level: 1 Mental status: Baseline
[2023-05-02] MEDS: dextrose 5%-lactated ringers 1,000 ML 125 ML IV (04:47)
[2023-05-02] MEDS: ketorolac 30 mg/mL INJ IVP ×2 (09:27→16:16)
[2023-05-02] MEDS: docusate sodium 100 mg Capsule PO ×2 (09:28→19:22)
[2023-05-02] MEDS: prenatal vitamin Capsule 1 CAP PO (09:28)
[2023-05-02] MEDS: ferrous sulfate EC 325 mg Tablet PO (09:28)
[2023-05-02] MEDS: ondansetron 2 mg/ML SDV 2 mL 4 MG IVP ×2 (10:11→21:07)
[2023-05-02] MEDS: hyDROXYzine 25 mg Capsule 50 MG PO ×2 (10:57→17:49)
[2023-05-02 12:52] LABS: Hemoglobin 9.7 g/dL (11.5-15.3); Mean Corpuscular HGB Conc 33.4 g/dL (30.0-36.0); Mean Corpuscular Hemoglobin 27.7 pg (28.0-34.0); Mean Corpuscular Volume 82.9 fl (81-99); Mean Platelet Volume 10.2 fL (7.4-10.4); Platelet Count 326 10^3/cmm (130-400); Red Cell Distribution Width 14.6 % (12.1-15.1)
[2023-05-02] MEDS: oxyCODONE-APAP 5-325 mg Tablet PO ×2 (12:57→22:45)
--- NOTE | 2023-05-02 15:12 | PM.PN ---
Subjective Subjective: The patient is doing well at this time. She is ambulating, voiding, passing gas and tolerating food by mouth. Her pain is well controlled currently. Vitals/I&O/Wt Last Vital Signs Temp 97.2 F L 05/02/23 07:53 Pulse 88 05/02/23 11:00 Resp 16 05/02/23 12:57 BP 138/77 05/02/23 11:00 Pulse Ox 99 04/30/23 22:43 O2 Del Method Room Air 05/01/23 20:20 05/02/23 05/02/23 05/02/23 06:59 14:59 22:59 Intake Total 1200 / 4598.250 50 / 50 Output Total 1650 / 2350 200 / 200 Balance -450 / 2248.250 -150 / -150 Physical Exam Narrative: General: Alert and oriented x3 Cardiac: Regular rate and rhythm without murmurs Lungs: Clear to auscultation bilaterally without wheezes, crackles or rhonchi Abdomen: Soft, mild tenderness over uterus. The uterus is firm and 2 cm below the umbilicus. Bandage over incision is clean and dry. Extremities: Trace edema in the bilateral lower extremities Urinary Catheter Management: Kwan: Cath Placed During This Visit: yes Reason for Continuing Indwelling Catheter: Required Immobilization for Trauma or Surgery or Anesthesia Urinary Catheter Date of Insertion: 05/01/23 Urinary Catheter Time of Insertion: 05:07 Data 05/02/23 12:20 A&P Assessment and plan (1) Status post section: The patient is doing well at this time. We will continue with routine postoperative care. We will plan for discharge home on Saturday if she continues to do well. All questions answered. Attestations Medical Necessity Statement*: The patient will be here for greater than 2 midnights due to routine intrapartum and management of labor and delivery. Coding Level of Care Code Acute Code for Chg Fwd Diagnoses Status post section Z98.891
[2023-05-02] MEDS: simethicone 80 mg Chew PO (17:47)
[2023-05-02] MEDS: labetalol 5 mg/mL SDV 20mL 20 MG IVP (22:36)
[2023-05-03] VITALS (45 sets, daily range): BP systolic 106–164; BP diastolic 54–89; PULSE 76–148; RESP 16; TEMP 35.9–36.7; O2SAT 99
[2023-05-03] MEDS: ibuprofen 800 mg tablet PO ×4 (00:10→21:31)
[2023-05-03] MEDS: hyDROXYzine 25 mg Capsule 50 MG PO (02:20)
[2023-05-03] MEDS: LORazepam 0.5 mg Tablet PO (06:32)
--- NOTE | 2023-05-03 06:34 | PC.NURSE ---
This nurse answered pt call light @0526 on 05-03-23. When this nurse went into patient room, pt was shaking, saying her heart was racing, and that everytime she would try to fall asleep she would wake up crying due to having bad dreams about falling out of bed. This nurse gave her a paper bag to breathe into. Pt heart rate which was 148 upon entrance then began to drop to 113. Pt was still shaking and told this nurse, I think im having a panic attack. This nurse called Dr. Mims. He gave orders to start Zoloft 50mg to see if that will help. After entering back into pt room she said, Im not gonna breast feed and would like a stronger medication because im afraid I wont be able to properly care for my baby if im not getting my anxiety under control. This nurse called tomasz again and he gave orders for a one time dose of ativan 0.5mg.
[2023-05-03] MEDS: sertraline 50 mg Tablet PO (09:51)
[2023-05-03] MEDS: prenatal vitamin Capsule 1 CAP PO (09:51)
[2023-05-03] MEDS: docusate sodium 100 mg Capsule PO ×3 (09:52→21:04)
[2023-05-03] MEDS: simethicone 80 mg Chew PO ×2 (09:56→18:17)
--- NOTE | 2023-05-03 15:31 | P.PN_ITS ---
Subjective Subjective: The patient had an episode of panic attacks overnight. She was given Vistaril that did not help sufficiently. She eventually received Ativan and this helped her to sleep. I talked with her about the episodes and she was very concerned that she was starting to have complications from her high blood pressure. She is feeling better now. Vitals/I&O/Wt Last Vital Signs Temp 96.6 F L 05/03/23 12:41 Pulse 104 H 05/03/23 14:05 Resp 16 05/03/23 00:59 BP 150/71 05/03/23 14:05 Pulse Ox 99 05/03/23 06:17 O2 Del Method Room Air 05/01/23 20:20 Physical Exam Narrative: General: Alert and oriented x3 Cardiac: Regular rate and rhythm without murmurs Lungs: Clear to auscultation bilaterally without wheezes, crackles or rhonchi Abdomen: Soft, mild tenderness over uterus. The uterus is firm and 2 cm below the umbilicus. Incision is clean and dry without signs of infection or dehiscence. Extremities: +1 pitting edema in the bilateral lower extremities Urinary Catheter Management: Kwan: Cath Placed During This Visit: yes, but has since been removed by the nurse Reason for Continuing Indwelling Catheter: Decision to DC Catheter Urinary Catheter Date of Insertion: 05/01/23 Urinary Catheter Time of Insertion: 05:07 Date Urinary Catheter Removed: 05/02/23 Time Urinary Catheter Discontinued: 16:30 Data 05/02/23 12:20 A&P Assessment and plan (1) Status post section: The patient is doing well overall status post section yesterday. We will continue with routine care and plan for discharge tomorrow if she continues to do well. (2) Anxiety and depression: The patient had an episode of anxiety and panic attack earlier today. She is do ing much better and reassurance regarding her medical situation seems to have helped her as well. We will continue with Zoloft 50 mg daily. Attestations Medical Necessity Statement*: The patient will be here for greater than 2 midnights due to routine intrapartum and management of labor and delivery. Coding Level of Care Code Acute Code for Chg Fwd Diagnoses Status post section Z98.891 Anxiety and depression F41.9; F32.9
[2023-05-03] MEDS: alum-mag-hydroxide-sime 30 mL UDC PO (16:25)
[2023-05-04] VITALS: RESP 16
[2023-05-04 05:08] VITALS: BP 145/72; PULSE 89; TEMP 35.7
[2023-05-04] MEDS: sertraline 50 mg Tablet PO (08:08)
[2023-05-04] MEDS: ibuprofen 800 mg tablet PO (08:08)
[2023-05-04] MEDS: docusate sodium 100 mg Capsule PO (08:08)
--- NOTE | 2023-05-04 09:41 | PM.DCS ---
Discharge Providers Date of Admission: 04/29/23 18:12 Date of Discharge: May 04, 2023 Attending Provider at Admission: Nikunj Mims MD Attending Provider at Discharge: Nikunj Mims MD Primary Care Provider: Nikunj Mims MD Diagnoses at Discharge Discharge Diagnosis (1) Status post section: Status: Acute (2) Anxiety and depression: Status: Acute Permanent problem details: Diagnosed at the age of 18 and has been on and off medication. This is managed by her primary care provider. Other Information Additional DC diagnoses/information: 1.? Intrauterine status post primary low-transverse section at 39.3 weeks gestation 2.? Obesity 3.? Chronic hypertension 4.? Depression and anxiety on sertraline 5.? THC positive 6.? Mild anemia 7.? Delivery of healthy infant male weighing 7 pounds 15 ounces with Apgars of 8 and 9 Reason for Visit Reason for Visit: induction Brief History: Mi Gaviria is a 28 year old G1 now P1 status post primary low transverse section @ 39.3 weeks by LMP c/w 9 wk US. Preg c/b obesity, borderline cHTN, Depression/anxiety on Sertraline 50, nicotine/THC use in early , h/o chlamydia, LSIL, mild anemia. The patient presented for induction of labor due to chronic hypertension at 39.1 weeks gestation on the evening of 04/29/2023.? The patient was given 3 doses of Cytotec and changed to 1 cm dilation.? She was then started on IV Pitocin and began to make change, however this was slow in nature.? Unfortunately the infant's head was balottable so AROM could not be performed initially.? By the morning of 05/01/2023, the patient began to make cervical change and by early afternoon at approximately 2:30 PM on 05/01/2023, AROM was performed with clear fluid noted.? The patient began to make change and was 7 cm dilated by 6:15 PM.? She did not make any significant change however by 10 PM despite adequate contractions.? For this reason it was felt best to proceed with a primary low-transverse section due to arrest of dilation concerning for cephalopelvic disproportion. Hospital Course Hospital Course The patient had a primary low-transverse section and had no significant complications. She did have an episode of a panic attack on the morning of 05/03/2023, but this improved with reassurance. The patient is currently back on her sertraline and doing better. We will plan for discharge home this morning and she is to follow-up with me in clinic next week. Routine discharge instructions were discussed. All questions were answered. The patient and her significant other are in agreement with the current plan of care. Physical Exam Narrative: General: Alert and oriented x3 Cardiac: Regular rate and rhythm without murmurs Lungs: Clear to auscultation bilaterally without wheezes, crackles or rhonchi Abdomen: Soft, mild tenderness over uterus. The uterus is firm and 2 cm below the umbilicus. Incision is clean and dry without signs of infection or dehiscence. Extremities: +1 pitting edema in the bilateral lower extremities Urinary Catheter Management: Kwan: Cath Placed During This Visit: yes, but has since been removed by the nurse Reason for Continuing Indwelling Catheter: Decision to DC Catheter Urinary Catheter Date of Insertion: 05/01/23 Urinary Catheter Time of Insertion: 05:07 Date Urinary Catheter Removed: 05/02/23 Time Urinary Catheter Discontinued: 16:30 Discharge Data Studies Completed and Pending Laboratory Results WBC 20.0 10^3/uL (4.0-10.0) H 05/02/23 12:20 RBC 3.50 10^6/uL (4.1-5.3) L 05/02/23 12:20 Hgb 9.7 g/dL (11.5-15.3) L 05/02/23 12:20 Hct 29.0 % (37.0-47.0) L 05/02/23 12:20 MCV 82.9 fl (81-99) 05/02/23 12:20 MCH 27.7 pg (28.0-34.0) L 05/02/23 12:20 MCHC 33.4 g/dL (30.0-36.0) 05/02/23 12:20 RDW 14.6 % (12.1-15.1) 05/02/23 12:20 Plt Count 326 10^3/cmm (130-400) 05/02/23 12:20 MPV 10.2 fL (7.4-10.4) 05/02/23 12:20 Neut % (Auto) 66.6 % 04/29/23 18:40 Lymph % (Auto) 24.9 % 04/29/23 18:40 [place] % (Auto) 6.8 % 04/29/23 18:40 Eos % (Auto) 0.7 % 04/29/23 18:40 Baso % (Auto) 0.2 % 04/29/23 18:40 Neut # (Auto) 7.17 10^3/uL (1.8-7.7) 04/29/23 18:40 Lymph # (Auto) 2.7 10^3/uL (0.8-4.8) 04/29/23 18:40 [place] # (Auto) 0.7 10^3/uL (0.2-0.9) 04/29/23 18:40 Eos # (Auto) 0.1 10^3/uL (0.0-0.8) 04/29/23 18:40 Baso # (Auto) 0.0 10^3/uL (0.0-0.1) 04/29/23 18:40 Nucleated RBC % (auto) 0 % 04/29/23 18:40 Nucleated RBCs # 0.0 /100WBC 04/29/23 18:40 Urine Opiates Screen Negative ng/mL (Negative) 04/29/23 18:30 Ur Barbiturates Screen Negative ng/mL (Negative) 04/29/23 18:30 Ur Phencyclidine Scrn Negative ng/mL (Negative) 04/29/23 18:30 Ur Amphetamines Screen Negative ng/mL (Negative) 04/29/23 18:30 U Benzodiazepines Scrn Negative ng/mL (Negative) 04/29/23 18:30 Urine Cocaine Screen Negative ng/mL (Negative) 04/29/23 18:30 U Marijuana (THC) Screen Positive ng/mL (Negative) H 04/29/23 18:30 Vitals Last Vital Signs Temp 96.3 F L 05/04/23 05:08 Pulse 89 05/04/23 05:08 Resp 16 05/04/23 00:00 BP 145/72 05/04/23 05:08 Pulse Ox 99 05/03/23 06:17 O2 Del Method Room Air 05/01/23 20:20 Discharge Plan Discharge Patient Disposition: Home Condition: Stable Prescriptions: New oxycodone-acetaminophen 5-325 mg Tablet 1 - 2 tab PO Q6H PRN (Reason: Moderate To Severe Pain) Qty: 10 0RF ferrous sulfate 325 mg (65 mg iron) Tablet,Delayed Release (Dr/Ec) 325 mg PO BIDWM Qty: 30 0RF ibuprofen 800 mg Tablet 800 mg PO TID Qty: 60 0RF labetalol 100 mg tablet 50 mg PO BID PRN (Reason: SBP>150 or DBP>100) Qty: 60 0RF Rx Instructions: Take 1/2 tab every 12 hours as needed for BP>150/100 Continued prenat.vits,jessica,you-xarj-evdqt Tablet 1 tab PO DAILY sertraline 50 mg tablet See Rx Instructions .ROUTE .COMPLEX Qty: 30 3RF Dose Instruction: TAKE 1 TABLET BY MOUTH EVERY DAY Rx Instructions: TAKE 1 TABLET BY MOUTH EVERY DAY Discontinued doxylamine succinate 25 mg tablet 25 mg PO Q6H PRN (Reason: Nausea) pyridoxine (vitamin B6) [Vitamin B-6] 100 mg tablet 100 mg PO QID Discharge Orders: Discharge Order (Routine); Ordered 05/04/23 Ordered By: Nikunj Mims Referrals: Nikunj Mims MD [Primary Care Provider] - 4-7 days Discharge Diet: Regular Discharge Activity: Limit activity as instructed Patient Instructions: Depression (GEN), Bleeding (GEN), Preeclampsia and Eclampsia After Delivery (GEN), OB Caring for Baby - [facility], [facility], OB Discharge Report, OB Food/Drug Interaction Guide, OB Home Care Instructions, Opioid Safety, OB Your Care - [facility], Abnormal Bleeding Activity Restrictions/Additional Instructions: Keep overall activity levels decreased for the next week to help keep your blood pressure in a good range. If your blood pressure is over 150/100, please take 50 mg of labetalol twice a day. If you have any concern for infection in your incision site, please contact my office right away or seek medical attention right away. Discharge Attestations Time Spent in Discharge Care*: greater than 30 min Quality Metrics Clinical Quality Measures [ No reported AMI, CVA or VTE this stay] Coding Level of Care Code Acute Code for Chg Fwd Diagnoses Status post section Z98.891 Anxiety and depression F41.9; F32.9
[2023-05-04 11:34] VITALS: BP 161/97; PULSE 80; TEMP 36.2
[2023-05-04 11:41] VITALS: BP 145/86; PULSE 89
[2023-05-04 12:00] VITALS: BP 145/86; PULSE 89; RESP 15; TEMP 36.6
== END 2023-05-04 12:25 | disposition home or self-care (01) | DRG 788 ==
LOC: OBGYN 18:12 → OPOB 18:19 → OBGYN 18:19
PROVIDERS: Admitting Provider Family Medicine; PCP Family Medicine; Visit Provider Family Medicine
PROC: (CPT 59514; principal; 2023-05-01 23:05)
DX: O10.92 Unspecified pre-existing hypertension complicating childbirth (principal); Z3A.39 39 weeks gestation of pregnancy; O99.213 Obesity complicating pregnancy, third trimester; O99.343 Other mental disorders complicating pregnancy, third trimester; O62.0 Primary inadequate contractions; Z37.0 Single live birth; O33.9 Maternal care for disproportion, unspecified; O99.02 Anemia complicating childbirth; R87.612 Low grade squamous intraepithelial lesion on cytologic smear of cervix (LGSIL); E66.9 Obesity, unspecified; F41.9 Anxiety disorder, unspecified; F32.A Depression, unspecified; D64.9 Anemia, unspecified; O76 Abnormality in fetal heart rate and rhythm complicating labor and delivery; O90.89 Other complications of the puerperium, not elsewhere classified; F41.0 Panic disorder [episodic paroxysmal anxiety]; O62.8 Other abnormalities of forces of labor
CPT/HCPCS: 36415; 51702; 59025; 59409; 80306; 85025; 85027; 96374; 96376; J0690; J1100; J1885; J2001; J2250; J2400; J2405; J2590; J2765; J2795; J3010; J3490; J7030; J7040; J7120; J7121

== ENCOUNTER → 2023-06-21 13:14 | Outpatient (BNVA) | payer BC, MEDICAID, SELFPAY | PROVIDERS: PCP Family Medicine; Visit Provider Obstetrics & Gynecology | DX: Z01.818 Encounter for other preprocedural examination (principal); R87.612 Low grade squamous intraepithelial lesion on cytologic smear of cervix (LGSIL) | CPT/HCPCS: 81025; 88305 ==

== ENCOUNTER → 2024-02-06 10:12 | Outpatient (BNVA) | payer BC, MEDICAID, SELFPAY | PROVIDERS: PCP Family Medicine; Visit Provider Family Medicine | DX: D64.9 Anemia, unspecified (principal); Z51.81 Encounter for therapeutic drug level monitoring | CPT/HCPCS: 83540; 83550; 85025 ==

== ENCOUNTER → 2024-02-10 16:20 | Outpatient (BNVA) | payer BC, MEDICAID, SELFPAY | PROVIDERS: PCP Family Medicine; Visit Provider Family Medicine | DX: Z51.81 Encounter for therapeutic drug level monitoring (principal); D64.9 Anemia, unspecified; K62.5 Hemorrhage of anus and rectum | CPT/HCPCS: 85025; 85045 ==

== ENCOUNTER → 2024-07-20 15:18 | Outpatient (BNVA) | payer BC, MEDICAID, SELFPAY | PROVIDERS: PCP Family Medicine; Visit Provider Nurse Practitioner Women's Health | DX: R73.03 Prediabetes (principal); N87.0 Mild cervical dysplasia; D64.9 Anemia, unspecified | CPT/HCPCS: 83036; 85025; 87624 ==

== ENCOUNTER 2025-02-02 15:11 | Emergency (ER) | payer OTHER, SELFPAY ==
--- NOTE | 2025-02-02 15:12 | ECG_ITS ---
[facility] Test Date: 2025-02-02 Pat Name: Mi Gaviria Department: Room: Gender: Female Materials Mgmt Tech: : 1995 Requested By: Malka Myrick Order Number: [id number] Raven MD: Joshua Tsang M.D. Measurements Intervals [place] Rate: 86 P: -4 [place]: 123 QRS: 40 QRSD: 106 T: 8 QT: 347 QTc: 416 Interpretive Statements SINUS RHYTHM NONSPECIFIC T-WAVE ABNORMALITY No previous ECG available for comparison Electronically Signed On 02-03-2025 21:32:54 CDT by Joshua Tsang M.D. [email or web address]
--- NOTE | 2025-02-02 15:12 | XRR_ITS ---
PROCEDURE INFORMATION: Exam: XR Chest Exam date and time: 02/02/2025 3:33 PM Age: 29 years old Clinical indication: Pain; Chest pressure; Additional info: Cp TECHNIQUE: Imaging protocol: Radiologic exam of the chest. Views: 1 view. COMPARISON: CT abdomen pelvis w con* [id number] 02/04/2018 4:03 AM FINDINGS: Lungs: Lungs are clear. Pleural spaces: There is no pleural effusion or pneumothorax. Heart/Mediastinum: Cardiomediastinal contours are unremarkable. Bones/joints: Bones are unremarkable. XR/XR chest 1V portable [id number] IMPRESSION: No acute findings.
[2025-02-02 15:18] VITALS: BP 146/91; PULSE 90; RESP 14; TEMP 36.9; O2SAT 97
[2025-02-02 15:34] VITALS: BP 126/91; PULSE 88; RESP 25; O2SAT 96
--- NOTE | 2025-02-02 15:38 | ED_ITS ---
HPI - Chest Pain 2 General: Chief Complaint: Chest Pain Stated Complaint: chest pain Time Seen by Provider: 02/02/25 15:28 Source: patient Mode of arrival: ambulatory Limitations: no limitations History of Present Illness: 29-year-old female who states she been h aving chest pain since yesterday states been a pressure type pain in her upper chest goes to her back she had some mild dyspnea as well. Denies any history of heart issues she states she has had a history of anxiety and is felt little anxious she denies any vomiting diarrhea or fever. Associated symptoms: Reports dyspnea; Deny abdominal pain, fever(s), nausea or vomiting Related Data Home Medications ?Medication ?Instructions ?Recorded ?Confirmed Glp-1 1 dose INJECTION .COMNPLEX 0 02/02/25 02/02/25 ondansetron HCl 4 mg tablet 4 mg PO Q6H PRN Nausea And Vomiting 02/02/25 02/02/25 Previous Rx's ?Medication ?Instructions ?Recorded ferrous sulfate 325 mg (65 mg 325 mg PO TID #90 tabs 0 02/06/24 iron) tablet norethindrone 1 mg-ethinyl 1 tab PO DAILY #84 tabs estradiol 20 mcg (21)-iron 75 mg (7) tablet ([place] Fe 11/09 (28)) sertraline 100 mg tablet See Rx Instructions .Route 0 11/26/24 .COMPLEX #30 tabs Allergies Allergy/AdvReac Type Severity Reaction Status Date / Time No Known Allergies Allergy Verified 02/02/25 15:21 Review of Systems 2 Const: Denies: fever(s), chills, body aches or change in appetite ENMT: Denies: throat pain or dental pain Card: Reports: chest pain Resp: Reports: dyspnea GI: Denies: abdominal pain, nausea, vomiting or diarrhea : Denies: dysuria Musc: Denies: neck pain or back pain Skin/Breast: Denies: rash Neuro: Denies: headache(s) Psych: Denies: depression PFSH ED 2 PFSH: Medical History Anxiety and depression Diagnosed at the age of 18 and has been on and off medication. This is managed by her primary care provider. No pertinent past medical history Denies diabetes, asthma, hypertension, seizures, DVT/PE PCP: Dr. Mims Surgical History History of section 04/2023 - [facility] Status post section S/P tonsillectomy 2002 Family History Family/Other Breast cancer maternal aunt, diagnosed at age 32 Mother Diabetes Thyroid disease Hypertension Grandmother Diabetes paternal Heart disease paternal Grandfather Diabetes maternal Father Hypertension Denies family history of Colon cancer Ovarian cancer Hyperlipidemia Uterine cancer Stroke Social History Smoking and tobacco/nicotine status: never used tobacco/nicotine Substance/Drug Use: former Date of last use: 08/2022 - [facility] Physical Exam 2 Const: COMMON NORMALS: no acute distress, patient oriented x3 and healthy appearing HENMT: COMMON NORMALS: normocephalic and atraumatic HEAD & SCALP: n ormocephalic and atraumatic Eye: COMMON NORMALS: Equal, round and reactive pupils present and EOMs intact bilaterally PUPIL: Yes Equal, round and reactive pupils present Neck/C-Spine: COMMON NORMALS: full ROM and supple Chest: COMMONS NORMALS: normal inspection of the chest and normal palpation of entire chest wall Resp: COMMON NORMALS: normal respiratory effort, No retractions, No use of accessory muscles and clear to auscultation bilaterally AUSCULTATION: clear to auscultation bilaterally Cardio: COMMON NORMALS: regular rate, regular rhythm and No murmurs present (Cardio) RATE: regular rate RHYTHM: regular rhythm GI: COMMON NORMALS: Normal to inspection, nondistended, normoactive bowel sounds present, Soft to palpation, non-tender and no masses PALPATION: Yes Soft to palpation Extremity: COMMON NORMALS: normal to inspection and full ROM Neuro: COMMON NORMALS: patient oriented x3, moves all extremities and no focal motor deficits Psych: COMMON NORMALS: mental status grossly normal, Normal thought process present and cooperative THOUGHT PROCESS: Normal thought process present Skin: COMMON NORMALS: no rashes or lesions noted and no wounds GENERAL SKIN EXAM: no rashes or lesions noted Course 2 Vital Signs: Vital signs: Vital Signs Temperature 98.4 F 02/02/25 15:18 Pulse Rate 90 02/02/25 15:18 Respiratory Rate 14 02/02/25 15:18 Blood Pressure 146/91 02/02/25 15:18 Pulse Oximetry 97 02/02/25 15:18 Oxygen Delivery Me thod Room Air 02/02/25 15:18 MDM - Chest Pain Medical Decision Making Patient presents for chest pain is atypical in nature troponin D-dimer here negative no signs of dissection or pulm embolism she feels improved here she is stable for discharge follow-up PCP return if worsening. Medical Records I reviewed the patient's medical records. Lab Data I reviewed the patient's lab results. 02/02/25 15:42 02/02/25 15:42 Radiology Impressions Chest X-Ray 02/02/25 15:12 IMPRESSION: No acute findings. Laboratory Results WBC 8.46 10^3/uL (3.29-11.43) 02/02/25 15:42 RBC 4.12 10^6/uL (3.85-5.65) 02/02/25 15:42 Hgb 10.20 g/dL (11.27-16.99) L 02/02/25 15:42 Hct 32.3 % (36-47) L 02/02/25 15:42 MCV 78.4 fl (85-98) L 02/02/25 15:42 MCH 24.8 pg (27-33) L 02/02/25 15:42 MCHC 31.6 g/dL (30-55) 02/02/25 15:42 RDW 15.5 % (12.1-15.1) H 02/02/25 15:42 Plt Count 455 10^3/cmm (157-399) H 02/02/25 15:42 MPV 9.3 fL (7.4-10.4) 02/02/25 15:42 Neut % (Auto) 57.8 % 02/02/25 15:42 Lymph % (Auto) 32.7 % 02/02/25 15:42 [place] % (Auto) 3.8 % 02/02/25 15:42 Eos % (Auto) 4.7 % 02/02/25 15:42 Baso % (Auto) 0.2 % 02/02/25 15:42 Neut # (Auto) 4.88 10^3/uL (1.8-7.7) 02/02/25 15:42 Lymph # (Auto) 2.8 10^3/uL (0.8-4.8) 02/02/25 15:42 [place] # (Auto) 0.3 10^3/uL (0.2-0.9) 02/02/25 15:42 Eos # (Auto) 0.4 10^3/uL (0.0-0.8) 02/02/25 15:42 Baso # (Auto) 0.0 10^3/uL (0.0-0.1) 02/02/25 15:42 Nucleated RBC % (auto) 0 % 02/02/25 15: Nucleated RBCs # 0.0 /100WBC 02/02/25 15:42 D-Dimer 0.36 ug/mLFEU (0-0.59) 02/02/25 15:42 Sodium 140 mmol/L (136-145) 02/02/25 15: Potassium 4.0 mmol/L (3.5-5.1) 02/02/25 15: Chloride 107 mmol/L (98-107) 02/02/25 15: Carbon Dioxide 17 mmol/L (22-29) L 02/02/25 15:42 Anion Gap 20.0 (5-19) H 02/02/25 15:42 BUN 11 mg/dL (6-20) 02/02/25 15:42 Creatinine 0.8 mg/dL (0.5-0.9) 02/02/25 15:42 GFR Calculation 86.0 mL/min (90-130) L 02/02/25 15: Glucose 131 mg/dL (65-115) H 02/02/25 15:42 Calculated Osmolality 291 mOsm/kg (285-295) 02/02/25 15:42 Calcium 8.9 mg/dL (8.5-10.5) 02/02/25 15:42 Total Bilirubin 0.2 mg/dL (0.15-1.2) 02/02/25 15:42 AST 15 U/L (0-32) 02/02/25 15:42 ALT 27 U/L (0-33) 02/02/25 15:42 Alkaline Phosphatase 62 U/L (35-105) 02/02/25 15: Troponin T Baseline < 6 ng/L (0-10) 02/02/25 15:42 Total Protein 7.8 g/dL (6.6-8.7) 02/02/25 15:42 Albumin 4.1 g/dL (3.5-5.2) 02/02/25 15:42 Globulin 3.7 g/dL (1.3-4.6) 02/02/25 15:42 Lipase 121 U/L (13-60) H 02/02/25 15:42 HCG, Qual Negative (Negative) 02/02/25 15:42 All radiology interpretation(s) finalized by discharge Discharge Plan Discharge Patient Disposition: Home Clinical Impression: Chest pain Condition: Stable Prescriptions: No Action norethindrone-e.estradiol-iron [[place] Fe 11/09 ()] 1 mg-20 mcg (21)/75 mg (7) tablet 1 tab PO DAILY Qty: 84 3RF ferrous sulfate 325 mg (65 mg iron) tablet 325 mg PO TID Qty: 90 3RF sertraline 100 mg tablet See Rx Instructions .ROUTE .COMPLEX Qty: 30 6RF Dose Instruction: TAKE 1 TABLET BY MOUTH EVERY DAY Rx Instructions: TAKE 1 TABLET BY MOUTH EVERY DAY Glp-1 1 dose INJECTION .COMNPLEX Rx Instructions: Inject as directed once weekly ondansetron HCl 4 mg tablet 4 mg PO Q6H PRN (Reason: Nausea And Vomiting) Discharge Orders: Discharge ED (Routine); Ordered 02/02/25 Ordered By: Malka Myrick Referrals: Nikunj Mims MD [Primary Care Provider] - 4-7 days Discharge Diet: Advance as tolerated Discharge Activity: Resume usual activity Patient Instructions: Chest Pain (ED) Print Language: Pakistani Coding Level of Care Code ED [employer]
[2025-02-02 15:52] LABS: Basophils % 0.2 %; Eosinophils # 0.4 10^3/uL (0.0-0.8); Eosinophils % 4.7 %; Hematocrit 32.3 % (36-47); Lymphocytes # 2.8 10^3/uL (0.8-4.8); Lymphocytes % 32.7 %; Mean Corpuscular HGB Conc 31.6 g/dL (30-55); Mean Corpuscular Hemoglobin 24.8 pg (27-33); Mean Corpuscular Volume 78.4 fl (85-98); Mean Platelet Volume 9.3 fL (7.4-10.4); Monocytes # 0.3 10^3/uL (0.2-0.9); Monocytes % 3.8 %; Neutrophils # 4.88 10^3/uL (1.8-7.7); Neutrophils % 57.8 %; Nucleated Red Blood Cells % 0 %; Platelet Count 455 10^3/cmm (157-399); Red Blood Count 4.12 10^6/uL (3.85-5.65); Red Cell Distribution Width 15.5 % (12.1-15.1); White Blood Count 8.46 10^3/uL (3.29-11.43)
[2025-02-02 16:09] LABS: D Dimer 0.36 ug/mLFEU (0-0.59)
[2025-02-02 16:15] LABS: HCG, Serum Qual Negative (Negative)
[2025-02-02 16:16] LABS: Troponin(5th) Baseline < 6 ng/L (0-10)
[2025-02-02 16:21] LABS: Alanine Aminotransferase 27 U/L (0-33); Albumin Level 4.1 g/dL (3.5-5.2); Alkaline Phosphatase 62 U/L (35-105); Aspartate Amino Transferase 15 U/L (0-32); Blood Urea Nitrogen 11 mg/dL (6-20); Calcium 8.9 mg/dL (8.5-10.5); Carbon Dioxide 17 mmol/L (22-29); Chloride 107 mmol/L (98-107); Creatinine Clr Calc Pharmacy 140.2957; Globulin 3.7 g/dL (1.3-4.6); Glucose 131 mg/dL (65-115); Lipase 121 U/L (13-60); Osmolality Calculated 291 mOsm/kg (285-295); Sodium 140 mmol/L (136-145); Total Bilirubin 0.2 mg/dL (0.15-1.2); Total Protein 7.8 g/dL (6.6-8.7)
[2025-02-02 16:42] VITALS: BP 155/112; PULSE 86; O2SAT 97
[2025-02-02 16:45] VITALS: BP 155/112; PULSE 94; O2SAT 98
== END 2025-02-02 16:45 | disposition home or self-care (01) ==
PROVIDERS: Emergency Provider Emergency Medicine; PCP Family Medicine
DX: R07.9 Chest pain, unspecified (principal)
CPT/HCPCS: 36415; 71045; 80053; 83690; 84484; 84703; 85025; 85378; 93005; 99285